=== PATIENT | female | born 1975 | race African-American/Black ===

== ENCOUNTER 2020-08-09 20:44 | Emergency (ER) | payer SELFPAY ==
[~2020-08-09] VITALS: Ht 160 cm; Wt 79.5 kg
[2020-08-09 20:49] VITALS: BP 155/83
[2020-08-09] MEDS ORDERED: NEOM10SO7 AD (21:09)
--- NOTE | 2020-08-09 21:10 | PHYS DOC ---
Past Medical History Past Medical History: No Pertinent History Past Surgical History: Oophorectomy Smoking Status: Never Smoker Alcohol Use: None General Adult EDM: Chief Complaint: EARACHE/EAR PAIN HPI: HPI: Patient is a 45 year old female presents with a chief complaint of fullness in the right ear for last 5 days. Patient has decreased hearing and some discomfort in the right ear. Patient denies any nausea vomiting or dizziness. Patient denies any recent fevers chills cough. Patient states she has been using Q-tips with no relief. No obvious history of foreign body Review of Systems: Review of Systems: Constitutional: Denies fever or chills. [] Eyes: Denies change in visual acuity. [] HENT: Denies nasal congestion or sore throat. But has right ear pain and fullness with some decreased hearing Respiratory: Denies cough or shortness of breath. [] Cardiovascular: Denies chest pain or edema. [] GI: Denies abdominal pain, nausea, vomiting, bloody stools or diarrhea. [] : Denies dysuria. [] Musculoskeletal: Denies back pain or joint pain. [] Integument: Denies rash. [] Neurologic: Denies headache, focal weakness or sensory changes. [] Endocrine: Denies polyuria or polydipsia. [] Lymphatic: Denies swollen glands. [] Psychiatric: Denies depression or anxiety. [] Heart Score: Risk Factors: Risk Factors: DM, Current or recent (<one month) smoker, HTN, HLP, family history of CAD, obesity. Risk Scores: Score 0 - 3: 2.5% MACE over next 6 weeks - Discharge Home Score 4 - 6: 20.3% MACE over next 6 weeks - Admit for Clinical Observation Score 7 - 10: 72.7% MACE over next 6 weeks - Early Invasive Strategies Allergies: Allergies: Allergies Coded Allergies Type Severity Reaction Last Updated Verified No Known Drug Allergies 08/09/20 No Physical Exam: PE: Constitutional: Well developed, well nourished, no acute distress, non-toxic appearance. [] HENT: White appearing substance in the mid right ear canal with some bubbles associated with it. Mild inflammation of the right ear canal TM not visualized. Left canal and TM normal. Mastoids normal. Eyes: PERRLA, EOMI, conjunctiva normal, no discharge. [] Neck: Normal range of motion, no tenderness, supple, no stridor. [] Cardiovascular:Heart rate regular rhythm, peripheral pulses intact, cap refill brisk Lungs & Thorax: Bilateral breath sounds clear, no respiratory distress Abdomen: Nondistended Skin: Warm, dry, no erythema, no rash. [] Back: No tenderness, no CVA tenderness. [] Extremities: No tenderness, no cyanosis, no clubbing, ROM intact, no edema. [] Neurologic: Alert and oriented X 3, normal motor function, normal sensory function, no focal deficits noted. [] Psychologic: Affect normal, judgement normal, mood normal. [] Current Patient Data: Vital Signs: Vital Signs Date Time Temp Pulse Resp B/P (MAP) Pulse Ox O2 Delivery O2 Flow Rate FiO2 08/09/20 20:49 97.1 70 18 155/83 (107) 100 Room Air 97.1 EKG: EKG: [] Radiology/Procedures: Radiology/Procedures: [] Course & Med Decision Making: Course & Med Decision Making Pertinent Labs and Imaging studies reviewed. (See chart for details) [] I am unable to see the right TM there is a white substance in the right canal. This may be wax or possible Q-tip fragments. Since I am unsure whether the foreign body or nondiagnostic control digging at it. I discussed with the patient putting her on topical antibiotics and following up with ENT as an outpatient. This may end up being a cholesteatoma. Celina Disclaimer: Celina Disclaimer: This electronic medical record was generated, in whole or in part, using a voice recognition dictation system. Departure Departure Impression: Primary Impression: Right ear pain Disposition: 01 HOME, SELF-CARE Condition: STABLE Referrals: ent 2-3 days Patient Instructions: Eardrops, Hydrocortisone; Neomycin; Polymyxin B ear suspension, Otitis Externa Additional Instructions: EMERGENCY DEPARTMENT GENERAL DISCHARGE INSTRUCTIONS THANK YOU for coming to [facility] Emergency Department (ED) today and trusting us with your care. We trust that you had a positive experience in our Emergency Department. If you wish to speak to the department Management you can contact the director emergency department at . YOUR FOLLOW UP INSTRUCTIONS ARE FOLLOWS: Do you have a private doctor? If you do not have a private doctor, please ask for a resource list of physicians or clinics that may be able to assist you with follow up care. The Emergency Physician has interpreted your x-rays. The X-ray specialist will also review them. If there is a change in the findings you will be notified in 48 hours when at all possible. A lab test or lab culture may have been done, your results will be reviewed and you will be notified if you need a change in treatment. ADDITIONAL INSTRUCTIONS AND INFORMATION Your care today has been supervised by a physician who is specially trained in emergency care. Many problems require more than one evaluation for a complete diagnosis and treatment. We recommend that you schedule your follow up appointment as recommended to ensure complete treatment of your illness or injury. If you are unable to obtain follow up care and continue to have a problem, or if your condition worsens we recommend that you return to the ED. We are not able to safely determine your condition over the phone nor are we a ble to give sound medical advice over the phone. For these safety reasons, if you call for medical advice we will ask you to come to the ED for further evaluation If you have any questions regarding these discharge instructions please call the ED at . SAFETY INFORMATION In the interest of safety, wellness, and injury prevention; we encourage you to wear your seatbelt, if you smoke; quit smoking, and we encourage your family to use protective helmet for bicycling and other sporting events that present an increased risk for head injury. IF YOUR SYMPTOMS WORSEN OR NEW SYMPTOMS DEVELOP, OR YOU HAVE CONCERNS ABOUT YOUR CONDITION; OR IF YOUR CONDITION WORSENS WHILE YOU ARE WAITING FOR YOUR FOLLOW UP APPOINTMENT; EITHER CONTACT YOUR PRIMARY CARE DOCTOR, THE PHYSICIAN WHOSE NAME AND NUMBER YOU WERE GIVEN, OR RETURN TO THE ED IMMEDIATELY. Scripts Neomycin/Polymyxin B Sulf/Hc ([id number] EAR SOLN) 10 Ml Solution 4 DROP AD TID, #10 ML 0 Refills Prov: SHIVANI GARAY MD 08/09/20 Justicifation of Admission Dx: Justifications for Admission: Justification of Admission Dx: N/A SHIVANI GARAY MD Aug 09, 2020 21:10
== END 2020-08-09 21:18 | disposition home or self-care (01) ==
LOC: ER 20:44
DX: H92.01 Otalgia, right ear (principal)
CPT/HCPCS: 99283